=== PATIENT | male | born 1955 | race Caucasian/White ===

== ENCOUNTER 2016-09-19 22:03 | Observation (INO) | payer OTHER ==
[2016-09-19] MEDS ORDERED: ASPIRIN 81 MG CHEWABLE TABLETS PO ONE (22:47)
[2016-09-19] MEDS ORDERED: ASPIRIN 81 MG CHEWABLE TABLETS ONE (22:49)
[2016-09-19 22:54] LABS: BASOPHIL 0.4 % (0-2.0); EOSINOPHIL 3.8 % (0-4.5); MCH 30.6 pg (25.7-33.7); MEAN CELL VOLUME 90.1 fl (80-96); MEAN PLT VOLUME 7.1 fl (7.5-11.1); NEUTROPHILS 49.6 % (42.8-82.8); PLATELET COUNT 140 K/MM3 (134-434); RDW 11.3 % (11.9-15.9); WHITE BLOOD COUNT 4.4 K/mm3 (4.0-10.0)
[2016-09-19 22:59] LABS: ALBUMIN 4.1 g/dl (3.5-5.0); ALK PHOS 53 U/L (32-92); ANION GAP 7 (8-16); BILIRUBIN,TOTAL 0.6 mg/dl (0.2-1.0); CALCIUM 8.3 mg/dl (8.4-10.2); CO2 28 mmol/L (22-28); CREATININE 0.8 mg/dl (0.6-1.3); GLUCOSE,RANDOM 108 mg/dl (74-106); SGOT/AST 83 U/L (10-42); SGPT/ALT 68 U/L (10-40); TOT PROT 6.3 g/dl (6.4-8.3)
[2016-09-19 23:00] LABS: CPK(DFH) 135 IU/L (38-174)
[2016-09-19 23:07] LABS: TROPONIN I (DFP) < 0.03 ng/ml (0.03-0.50)
--- NOTE | 2016-09-20 00:39 | PDOC ---
History of Present Illness - General Chief Complaint: Chest Pain Stated Complaint: CHEST PAIN Time Seen by Provider: 09/19/16 22:13 History Source: Patient Exam Limitations: No Limitations - History of Present Illness Initial Comments: 09/20/16 00:36 61 Y M hyperchol, basal cell ca no chemo, in ed c/o gi symptoms last week ( vomiting and diarrhea) which got better. he went to work today and had an episode pf chest tightness, diaphoresis, and lt arm heaviness. lasting ~30 min. now gone. in ed, in nad. ekg no ischemic changes. no more n/v. no sob. no head ache or paresthesias Past History - Past Medical History Allergies/Adverse Reactions: Allergies Allergy/AdvReac Type Severity Reaction Status Date / Time No Known Allergies Allergy Verified 10/23/15 16:51 Home Medications: Ambulatory Orders Simvastatin [Zocor -] 10 mg PO DAILY 12/02/13 Anemia: No Asthma: Yes (ALLERGY INDUCED,MILD,LAST USED ALBUTEROL 1 MOS AGO) Cancer: Yes (SQUAMOUS AND BASAL FACE AND CHEST,HEAD) Cardiac Disorders: No CVA: No COPD: No CHF: No Dementia: No Diabetes: No GI Disorders: Yes (COLONOSCOPY 10 YRS AGO) Disorders: No HTN: No Hypercholesterolemia: Yes Liver Disease: No Seizures: No Thyroid Disease: No - Surgical History Abdominal Surgery: No Appendectomy: No Cardiac Surgery: No Cholecystectomy: No Lung Surgery: Yes (AT 19 RIGHT SPONTANEOUS PNEUMO-HAD CHEST TUBE) Neurologic Surgery: No Orthopedic Surgery: No - Psycho/Social/Smoking Cessation Hx Anxiety: No Suicidal Ideation: No Smoking History: Former smoker Have you smoked in the past 12 months: No Information on smoking cessation initiated: No Hx Alcohol Use: No Drug/Substance Use Hx: No Substance Use Type: Alcohol Hx Substance Use Treatment: No Cardiac Specific PMH - Complaint Specific PMHX Pacemaker: No Review of Systems - Review of Systems Able to Perform ROS?: Yes Is the patient limited Yakut proficient: No Constitutional: No: Symptoms Reported HEENTM: No: Symptoms Reported Respiratory: No: Symptoms reported Cardiac (ROS): Yes: Symptoms Reported, See HPI ABD/GI: Yes: Symptoms Reported, See HPI : No: Symptoms Reported Neurological: No: Symptoms reported All Other Systems: Reviewed and Negative *Physical Exam - Vital Signs Last Vital Signs Temp Pulse Resp BP Pulse Ox 98.7 F 76 16 124/82 95 09/19/16 22:37 09/19/16 23:48 09/19/16 23:48 09/19/16 23:48 09/19/16 23:48 - Physical Exam General Appearance: Yes: Nourished, Appropriately Dressed. No: Apparent Distress HEENT: positive: EOMI, BERENICE, Normal ENT Inspection Neck: positive: Supple. negative: Carotid bruit Respiratory/Chest: positive: Lungs Clear, Normal Breath Sounds. negative: Chest Tender, Respiratory Distress Cardiovascular: positive: Regular Rhythm, Regular Rate Gastrointestinal/Abdominal: positive: Normal Bowel Sounds, Soft. negative: Tender Integumentary: positive: Normal Color Neurologic: positive: Fully Oriented, Alert, Normal Mood/Affect, Normal Response , Motor Strength 5/5 Heart Score/ECG Review - History History: Moderately suspicious - Electrocardiogram EKG: Normal - Age Age: 45-65 - Risk Factors Risk Factors Heart Score: Yes Hx Hypercholesterolemia, Yes Smoking History Based on the list above the patient has:: 1-2 risk factors - Troponin Troponin: </= normal limit - Score Heart Score - Total: 3 - ECG Intrepretation Rhythm: Regular Rhythm - Troy Troy: Normal - ST and T Early Repolarization: No Non Specific ST-T Wave changes: No Flattened T Waves: No Prolonged Q-T Interval: No ED Treatment Course - LABORATORY CBC & Chemistry Diagram: 09/19/16 22:30 09/19/16 22:30 - ADDITIONAL ORDERS Additional order review: Laboratory Results 09/19/16 09/19/16 22:30 22:30 Sodium 131 L Potassium 3.7 Chloride 96 L Carbon Dioxide 28 Anion Gap 7 L BUN 18 Creatinine 0.8 Creat Clearance w eGFR > 60 Random Glucose 108 H Calcium 8.3 L Total Bilirubin 0.6 D AST 83 H D ALT 68 H D Alkaline Phosphatase 53 Creatine Kinase 135 Troponin I < 0.03 L Total Protein 6.3 L Albumin 4.1 09/19/16 22:30 RBC 4.43 MCV 90.1 MCHC 34.0 RDW 11.3 L MPV 7.1 L Neutrophils % 49.6 Lymphocytes % 28.5 Monocytes % 17.7 H Eosinophils % 3.8 Basophils % 0.4 - RADIOLOGY Radiology Studies Ordered: Category Date Time Status CHEST PA & LAT [RAD] Stat Radiology 09/19/16 22:47 Ordered CHEST X-RAY PORTABLE* [RAD] Stat Radiology 09/19/16 22:55 Completed - Medications Given in the ED: ED Medications Discontinued Medications Generic Name Dose Route Start Last Admin Trade Name Armando PRN Reason Stop Dose Admin Aspirin 162 mg 09/19/16 22:47 09/19/16 22:50 Asa - PO 09/19/16 22:48 162 mg ONCE ONE Administration *DC/Admit/Observation/Transfer Diagnosis at time of Disposition: Chest pain Qualifiers: Chest pain type: unspecified Qualified Code(s): R07.9 - Chest pain, unspecified - Discharge Dispostion Condition at time of disposition: Stable Admit: Yes
[2016-09-20] MEDS ORDERED: METOPROLOL TARTRATE 25 MG TABLET (FP) PO ONE (00:41)
[2016-09-20] MEDS: HEPARIN NA (PORCINE) 5,000 UNITS/ML 1ML VIAL SQ SCH ×2 (01:58→10:30)
[2016-09-20 02:30] VITALS: BMI 25.4
[2016-09-20 04:54] VITALS: BP 146/75; PULSE 80; TEMP 98.6
[2016-09-20 05:03] LABS: INR 1.05 (0.82-1.09); PROTHROMBIN TIME (PATIENT) 11.6 SEC (9.98-11.88)
[2016-09-20 05:11] LABS: CHOLESTEROL 172 mg/dL (50-200)
[2016-09-20 07:21] LABS: TROPONIN I < 0.02 ng/ml (0.00-0.05)
[2016-09-20] MEDS ORDERED: ASPIRIN COATED 81 MG TABLET.EC PO SCH (10:00)
--- NOTE | 2016-09-20 14:10 | CONSULT ---
Consult - text type - Consultation Consultation Note: ASKED TO SEE PT. 61 YO MAN CHEST APIN. PT SEEN, EXAMINED. X RAYS ECG'S REVIEWED. WORKING DX: NON CARDIAC CHEST PAIN/REFLUX ESOPHAGITIS DIFF DX: MYOCARDIAL ISCHEMIA.ASHD WITHOUT INFARCTION. PRESENTLY ASYMPTOMATIC/HEMODYNAMICALLY STABLE. REC: OK FOR OUT PATIENT MANAGEMENT OUT PATIENT STRESS NUCLEAR STUDY RISK FACTOR MODIFICATION DX PROGNOSIS RISKS, OPTIONS ALYERNTIVES ALL EXPLAINED TO PATIENT AND . ALL QUESTIONS ANSWERED THANKS. FULL NOTE DICTATED. FAMILY KEPT INFORMED.
--- NOTE | 2016-09-20 16:23 | CONS ---
DATE OF CONSULTATION: 09/20/2016 CARDIOLOGY CONSULTATION REQUESTING PHYSICIAN: Bello Loera M.D. The patient is a 61-year-old man admitted on September 20, 2016, because of chest pain. The patient has no known heart disease. There is no history of a myocardial infarction. However, the patient has had multiple episodes of chest pain. He was evaluated in an emergency room in October 2015 because of chest pain and was released without any evidence of myocardial infarction. An echocardiographic study in further evaluation was unremarkable with a left ventricular ejection fraction of 60% and no significant valve pathology. A stress test was advised but was not performed. He was then well until the 1-2 days prior to admission, when he complained of what he thought was "food poisoning" with upset stomach, nausea, and vomiting. On the day of presentation, he was working as a contractor, dizzy, and eating solid food for the first time. That night he complained of chest discomfort, diaphoresis while at rest, with radiation down the left arm, and he came urgently to the emergency room, where the electrocardiogram was unremarkable. His symptoms have gradually abated, and at this time he feels well. There is a previous history of hyperlipidemia. There is no history of hypertension or diabetes. MEDICATION: Present medications include aspirin 162 mg per day. He was taking simvastatin 40 mg daily prior to admission, and Percocet p.r.n. FAMILY HISTORY: His mother of lung disease. There is no family history of acute myocardial infarction or sudden . PRIOR SURGICAL HISTORY: Skin cancer excision. PAST MEDICAL HISTORY: Lumbar disk disease, BPH, hyperlipidemia, Ortiz disease, pneumonia in 1973. SOCIAL HISTORY: He lives at home with his . He smoked 1 pack of cigarettes per day in the past, stopping 30 years ago. He does drink alcohol but denies excessive use. He works as a contractor. REVIEW OF SYSTEMS: General: No fever or chills. Gastrointestinal: No melena, no bleeding per rectum. Pulmonary: No hemoptysis. Neurological: No focal deficit. PHYSICAL EXAMINATION: General: The patient appears well in no distress, lying flat. Vital signs: Temperature afebrile. Pulse is 78. Blood pressure 146/80. Respiratory rate is 18 per minute. The oxygen saturation is 97% on ambient air. The weight is 167 pounds. Neck: No neck vein distention. No carotid bruit. Lungs: Lung vazquez are clear. Heart: The heart sounds are normal. No murmur, no gallop is audible. The PMI is normal and not displaced. Abdomen: Soft and nontender. No organ enlargement. No abdominal bruit. No peripheral edema. No focal neurological deficit. DATABASE: The electrocardiogram demonstrates sinus rhythm, normal tracing. There are no significant ST and T wave changes seen compared to a prior tracing November 09, 2015, there is no change. The chest x-ray was reviewed. It is an AP portable film. There is no infiltrate, effusion, or pulmonary venous congestion. The heart size cannot be accurately assessed due to the technique of the film. Laboratory studies of note include troponin level negative at 0.02 and 0.03. The serum sodium is 131. The BUN 18, the creatinine 0.8. The AST is 83, the ALT is 68. The cholesterol is 172. Triglycerides 182. LDL 47, and HDL 89. The INR is 1. The white blood cell count is 4.4, hematocrit 40%, platelet count is 140,000. IMPRESSION: The working diagnosis is noncardiac chest pain secondary to reflux esophagitis. The electrocardiogram is normal, and there is no evidence of myocardial infarction as assessed by normal troponin levels. However, the differential diagnosis would include myocardial ischemia/atherosclerotic heart disease without infarction. The patient does have risk factors for the development of atherosclerotic disease and has had now multiple emergency room evaluations for chest pain. A noninvasive evaluation would be helpful for management decisions. The patient is presently asymptomatic and hemodynamically stable. I have recommended the followin. Okay for outpatient management. 2. Continue aspirin therapy. 3. Consideration for proton pump inhibitor. 4. Risk factor modification. 5. Outpatient stress nuclear study. 6. Further workup and therapy will be dictated by the results of the above evaluation and the patient's clinical course. The diagnosis, prognosis, risks, options and alternatives were explained at length to both the patient and his and all questions answered. Thank you for allowing me to take part in the care of this pleasant patient. MONTY WILLIAM M.D. BIN/[id number]
--- NOTE | 2016-09-20 18:10 | EKG ---
Test Reason : Blood Pressure : / mmHG Vent. Rate : 084 BPM Atrial Rate : 084 BPM P-R Int : 164 ms QRS Dur : 086 ms QT Int : 380 ms P-R-T Axes : 031 046 047 degrees QTc Int : 449 ms NORMAL SINUS RHYTHM NORMAL ECG NO PREVIOUS ECGS AVAILABLE Confirmed by TYRA LAMAS MD ([id number]) on 09/20/2016 6:09:41 PM Referred By: POWER Confirmed By:TYRA LAMAS MD
--- NOTE | 2016-09-20 22:39 | PN ---
Progress Note, Physician Chief Complaint: History and Clinical Information obtained via discussing w attending ED and patients chart; patient left hosp AMA Before the admitting doctor saw him. 61 m w nonexertional chest pain x 2days pre admission. History of Present Illness: 61 m w hx HLD on statins and prior hx similar Chest Pain in had NL EF ( see Cardio note) and was dc home w/o evidence ao WI or Ischemic cardiac etiol of Chest pain. Stress test was advised at the time but not obtained. On this occas pt developed stomache discomfort 2 days pre admission w assoc N/V. On nite pre admission after a meal pt had chest pain rad to left arm w weakness which prompted him to come to ED. In ED pts VItlas per wnl, Ekg NSR w/o isch changes, troponins were neg. Pt was given BB x 1 in ED, ASA and O2 via NC and Placed on Observation. Cardiology consultation was requested. a repeat AM EKG and AM Echo was ordered as well; Pts admission labs should Hyponatremia and Elev ALT(68) and AST (83) w/o Elev TBr. He was seen by Shipping And Receiving Coordinator who recommended patient may complete cardio wk up in the outpatien setting and had no evidence of WI. Patient was eager to go home and left the hospital with his spouse agreement prior to meeting the assigned/ admitting Primary Care Physician. As per Nursing staff the patient was stable when he left. Patient did not have a history of HTN, WI, DM, CVA or Mental Disease. - Current Medication List Current Medications: see p note and summary hx -zocor pre admission ; IN pt asa. - Objective Vital Signs: Vital Signs Temperature 98.6 F 09/20/16 04:53 Pulse Rate 80 09/20/16 04:53 Respiratory Rate 18 09/20/16 04:53 Blood Pressure 146/75 09/20/16 04:53 O2 Sat by Pulse Oximetry (%) 97 09/20/16 02:16 SEE HPI -> Patient NOT Examined. END of Phys Exam documentation. Labs: INR, PTT INR 1.05 (0.82-1.09) 09/20/16 04:00 s Laboratory Last Values WBC 4.4 K/mm3 (4.0-10.0) 09/19/16 22:30 RBC 4.43 M/mm3 (4.00-5.60) 09/19/16 22:30 Hgb 13.6 GM/dl (11.7-16.9) 09/19/16 22:30 Hct 39.9 % (35.4-49) 09/19/16 22:30 MCV 90.1 fl (80-96) 09/19/16 22:30 MCHC 34.0 g/dl (32.0-35.9) 09/19/16 22:30 RDW 11.3 % (11.9-15.9) L 09/19/16 22:30 Plt Count 140 K/MM3 (134-434) D 09/19/16 22:30 MPV 7.1 fl (7.5-11.1) L 09/19/16 22:30 Neutrophils % 49.6 % (42.8-82.8) 09/19/16 22:30 Lymphocytes % 28.5 % (8-40) 09/19/16 22:30 Monocytes % 17.7 % (3.8-10.2) H 09/19/16 22:30 Eosinophils % 3.8 % (0-4.5) 09/19/16 22:30 Basophils % 0.4 % (0-2.0) 09/19/16 22:30 INR 1.05 (0.82-1.09) 09/20/16 04:00 Sodium 131 mmol/L (136-145) L 09/19/16 22:30 Potassium 3.7 mmol/L (3.5-5.1) 09/19/16 22:30 Chloride 96 mmol/L (98-107) L 09/19/16 22:30 Carbon Dioxide 28 mmol/L (22-28) 09/19/16 22:30 Anion Gap 7 (8-16) L 09/19/16 22:30 BUN 18 mg/dl (7-18) 09/19/16 22:30 Creatinine 0.8 mg/dl (0.6-1.3) 09/19/16 22:30 Creat Clearance w eGFR > 60 (>60) 09/19/16 22:30 Random Glucose 108 mg/dl (74-106) H 09/19/16 22:30 Calcium 8.3 mg/dl (8.4-10.2) L 09/19/16 22:30 Magnesium 2.7 mg/dL (1.8-2.4) H 09/20/16 04:00 Total Bilirubin 0.6 mg/dl (0.2-1.0) D 09/19/16 22:30 AST 83 U/L (10-42) H D 09/19/16 22:30 ALT 68 U/L (10-40) H D 09/19/16 22:30 Alkaline Phosphatase 53 U/L (32-92) 09/19/16 22:30 Creatine Kinase 102 IU/L (39-308) 09/20/16 04:00 Troponin I < 0.02 ng/ml (0.00-0.05) 09/20/16 04:00 Total Protein 6.3 g/dl (6.4-8.3) L 09/19/16 22:30 Albumin 4.1 g/dl (3.5-5.0) 09/19/16 22:30 Triglycerides 182 mg/dL (35-160) H 09/20/16 04:00 Cholesterol 172 mg/dL (50-200) 09/20/16 04:00 Total LDL Cholesterol 47 mg/dl 09/20/16 04:00 HDL Cholesterol 89 mg/dL (40-60) H 09/20/16 04:00 - ....Imaging Chest X-ray: Report Reviewed EKG: Report Reviewed, Other Assessment/Plan 1-Admission Dx Chest Pain -> Non Cardiac- No evidence Cardiac etiol Acute Or Chronic cleared by Cardio for out pt wkup; I agree. 2- HLD w LDL @goal w statin. 3- Chest Pain -suspect GI etiology.= Cardio suggested PPI; I agree. 4- Hyponatremia - possibly assoc with GI disturbance but repeat chem ordered was not performed; also patient was not available for further assesment. 5- DC Home Planning- patient left AMA. END of note.
== END 2016-09-20 14:41 | disposition left against medical advice (07) ==
LOC: FER 22:03 → FM/S 09-20 00:50
DX: K21.0 Gastro-esophageal reflux disease with esophagitis (principal); R07.9 Chest pain, unspecified; N40.0 Benign prostatic hyperplasia without lower urinary tract symptoms; E78.5 Hyperlipidemia, unspecified; M51.86 Other intervertebral disc disorders, lumbar region; Z87.891 Personal history of nicotine dependence; E87.1 Hypo-osmolality and hyponatremia; R07.89 Other chest pain
CPT/HCPCS: 36415; 71010-TC; 80053; 80061; 82550; 83735; 84484; 85025; 85610; 93005; 93306-TC; 99283-25; G0378; J1644

== ENCOUNTER 2018-02-14 07:42 | Day surgery (SDC) | payer OTHER ==
[2018-02-09 13:53] VITALS: BMI 25.8
[2018-02-14] MEDS ORDERED: PROPOFOL 20 ML ONE ×2 (07:45)
[2018-02-14] MEDS ORDERED: LIDOCAINE HCL/PF 2% SDV 5ML VIAL ONE (07:46)
[2018-02-14 08:08] VITALS: TEMP 98.6
[2018-02-14 09:17] VITALS: BP 127/71; PULSE 63
--- NOTE | 2018-02-15 17:45 | PATH ---
Surgical Pathology Report Patient Name: SHAW ARAGON [facility]. Rec. #: [id number] /Age/Gender: 1955 (Age: 62) / M Account: [id number] Location: [facility]OSCOPY Taken: 02/14/2018 Received: 02/14/2018 Reported: 02/15/2018 Physicians: Messi Resendez M.D. Specimen(s) Received ILEOCECAL VALVE Clinical History History of polyps Postoperative diagnosis: polyp Final Diagnosis ILEOCECAL VALVE, BIOPSY: TUBULAR ADENOMA, CAUTERIZED. Electronically Signed Cristine Viera M.D. Gross Description Received in formalin, labeled "ileocecal valve" are 2 pond, irregular portions of soft tissue measuring 0.1 cm. in greatest dimension. The specimens are submitted in toto in one cassette. BRIAN/02/14/2018 cody/02/14/2018
== END 2018-02-14 09:20 | disposition home or self-care (01) ==
LOC: FASU-ENDO 07:42
PROVIDERS: ATTEND Internal Medicine Gastroenterology
PROC: 0DBC8ZX Excision of Ileocecal Valve, Via Natural or Artificial Opening Endoscopic, Diagnostic (ICD-10-PCS; principal; 2018-02-14 08:21)
DX: Z86.010 Personal history of colon polyps (principal); K57.30 Diverticulosis of large intestine without perforation or abscess without bleeding; D12.0 Benign neoplasm of cecum
CPT/HCPCS: 88305-TC

== ENCOUNTER 2022-01-04 10:18 | Emergency (ER) | payer OTHER ==
[2022-01-04 10:56] VITALS: BP 160/86; PULSE 80; TEMP 98.9; BMI 27.3
[2022-01-04] MEDS ORDERED: KETOROLAC TROMETHAMINE 30 MG/1 ML VIAL IM ONE (11:07)
[2022-01-04] MEDS ORDERED: KETOROLAC TROMETHAMINE 30 MG/1 ML VIAL ONE (11:14)
== END 2022-01-04 12:43 | disposition home or self-care (01) ==
LOC: FER 10:18
PROC: 3E023GC Introduction of Other Therapeutic Substance into Muscle, Percutaneous Approach (ICD-10-PCS; principal; 2022-01-04)
DX: M25.422 Effusion, left elbow (principal)
CPT/HCPCS: 73070-TC-RT-FY; 96372; 99284-25

== ENCOUNTER 2023-04-12 12:37 | Emergency (ER) | payer OTHER ==
[2023-04-12 13:01] VITALS: BP 134/74; PULSE 78; RESP 16; TEMP 98.7; BMI 26.3
[2023-04-12] MEDS ORDERED: DIPHTH,PERTUSS(ACELL),TET 0.5 ML DISP.SYRIN IM ONE ×2 (13:48→14:07)
== END 2023-04-12 14:41 | disposition home or self-care (01) ==
LOC: FER 12:37
PROC: 0HQ1XZZ Repair Face Skin, External Approach (ICD-10-PCS; principal; 2023-04-12)
PROC: 3E0234Z Introduction of Serum, Toxoid and Vaccine into Muscle, Percutaneous Approach (ICD-10-PCS; 2023-04-12)
DX: S01.81XA Laceration without foreign body of other part of head, initial encounter (principal); W22.8XXA Striking against or struck by other objects, initial encounter; Y93.01 Activity, walking, marching and hiking; Y92.89 Other specified places as the place of occurrence of the external cause
CPT/HCPCS: 12001-25; 70450-TC; 90471; 90715; 99284-25

== ENCOUNTER 2023-04-21 10:10 | Emergency (ER) | payer OTHER ==
[2023-04-21 10:27] VITALS: BP 147/94; PULSE 81; RESP 18; TEMP 98.1; BMI 26.2
== END 2023-04-21 10:30 | disposition home or self-care (01) ==
LOC: FER 10:10
DX: Z48.02 Encounter for removal of sutures (principal)
CPT/HCPCS: 99281-25

== ENCOUNTER 2023-08-07 15:24 | Emergency (ER) | payer OTHER ==
[2023-08-07 15:36] VITALS: BP 130/98; PULSE 88; RESP 16; TEMP 98.7; BMI 26.6
== END 2023-08-07 16:31 | disposition home or self-care (01) ==
LOC: FER 15:24
DX: S00.83XA Contusion of other part of head, initial encounter (principal); W01.198A Fall on same level from slipping, tripping and stumbling with subsequent striking against other object, initial encounter; Y92.9 Unspecified place or not applicable
CPT/HCPCS: 70450-TC; 70486-TC; 99284-25

== ENCOUNTER 2024-08-27 07:46 | Emergency (ER) | payer OTHER ==
[2024-08-27] MEDS ORDERED: ASPIRIN 81 MG CHEWABLE TABLETS ONE (08:02)
[2024-08-27] MEDS: ASPIRIN 81 MG CHEWABLE TABLETS PO ONE (08:03)
[2024-08-27 08:11] VITALS: BP 142/88; PULSE 96; RESP 18; TEMP 98.9; BMI 26.2
[2024-08-27 08:31] LABS: INR 1.02 (0.83-1.09); PROTHROMBIN TIME (PATIENT) 11.6 SEC (9.7-13.0)
[2024-08-27 08:33] LABS: ACTIVATED PTT 27.3 SECONDS (25.2-36.5)
[2024-08-27 08:43] LABS: HEMATOCRIT 44.3 % (35.4-49); HEMOGLOBIN 14.7 G/dL (11.7-16.9); MCH 31.9 pg (25.7-33.7); MCHC 33.2 g/dl (32.0-35.9); MEAN PLT VOLUME 7.8 fl (7.5-11.1); RBC 4.61 10^6/uL (4.00-5.60); WHITE BLOOD COUNT 4.7 10^3/uL (4.0-10.8)
[2024-08-27 08:47] LABS: ALBUMIN 4.5 g/dl (3.4-5.0); BILIRUBIN,TOTAL 0.7 mg/dl (0.2-1); CALCIUM 9.6 mg/dl (8.5-10.1); CREATININE 0.7 mg/dl (0.6-1.3); MAGNESIUM 2.1 mg/dL (1.8-2.4); TOT PROT 6.7 g/dl (6.4-8.2)
[2024-08-27 09:00] LABS: PLATELET ESTIMATE ADEQUATE
[2024-08-27 12:45] LABS: HIV INTERPRETATION NEGATIVE (NEGATIVE)
== END 2024-08-27 09:25 | disposition home or self-care (01) ==
LOC: FER 07:46
DX: R07.89 Other chest pain (principal)
CPT/HCPCS: 36415; 71046-TC-FY; 80053; 82550; 83735; 84484; 85025; 85610; 85730; 86803; 87389; 87522; 93005; 99285-25